=== PATIENT | male | born 1990 | race Caucasian/White ===

== ENCOUNTER 2017-12-06 17:27 | Emergency (ER) | payer OTHER ==
[2017-12-06 17:46] VITALS: RESP 20
[2017-12-06] MEDS ORDERED: Bacitracin 500 Units/gm Oint Foilpak UD TOP ONE (17:53)
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
[2017-12-06] MEDS ORDERED: Bacitracin 500 Units/gm Oint Foilpak UD ONE (18:15)
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
[2017-12-06] MEDS ORDERED: Naproxen 550 mg Tab PO STA (20:22)
[2017-12-06] MEDS ORDERED: Naproxen 550 mg Tab PO ONE (20:51)
[2017-12-06 20:54] VITALS: BP 126/78; PULSE 89; TEMP 98.5; O2SAT 98
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
== END 2017-12-06 21:11 | disposition home or self-care (01) ==
LOC: C.ER 17:27
DX: S01.511A Laceration without foreign body of lip, initial encounter (principal); S80.211A Abrasion, right knee, initial encounter; S80.212A Abrasion, left knee, initial encounter; S93.402A Sprain of unspecified ligament of left ankle, initial encounter; Y08.89XA Assault by other specified means, initial encounter; Y92.89 Other specified places as the place of occurrence of the external cause

== ENCOUNTER 2018-01-16 22:30 | Emergency (ER) | payer OTHER ==
[2018-01-16 22:48] VITALS: BP 142/79; TEMP 98.1
--- NOTE | 2018-01-16 23:22 | C.PDOC ---
History Of Present Illness 27 years old male presents to ED with complaints of productive cough with clear sputum, chest congestion, and nasal congestion that began 4 days ago. Patient reports he took mucinex with mild relief. Patient also states sore throat with hoarseness that began today. Denies fever, chills, SOB, or any other complaints. Patient states had similar symptoms few days prior. Time Seen by Provider: 01/16/18 23:07 Chief Complaint (Nursing): Cough, Cold, Congestion History Per: Patient History/Exam Limitations: no limitations Onset/Duration Of Symptoms: Days (4) Current Symptoms Are (Timing): Still Present Location Of Pain: Throat, Sinus/es Sick Contacts (Context): Family Member(s) () Associated Symptoms: Sore Throat, Cough, Sputum (clear), Nasal Congestion, Other (chest congestion). denies: Fever, Chills, Vomiting, Diarrhea Ear Symptoms: Bilateral: None Recent travel outside of the [place]: No Past Medical History Reviewed: Historical Data, Nursing Documentation, Vital Signs Vital Signs: Last Vital Signs Temp 98.1 F 01/16/18 22:40 Pulse 98 H 01/16/18 23:30 Resp 18 01/16/18 23:30 BP 142/79 01/16/18 22:40 Pulse Ox 96 01/17/18 02:02 - Medical History PMH: No Chronic Diseases Surgical History: No Surg Hx Family History: States: No Known Family Hx - Social History Hx Alcohol Use: No Hx Substance Use: No Review Of Systems Constitutional: Negative for: Fever, Chills ENT: Positive for: Nose Congestion, Other (Sore throat) Cardiovascular: Positive for: Other (chest congestion). Negative for: Palpitations Respiratory: Positive for: Cough (productive with clear spuum), Sputum (clear). Negative for: Shortness of Breath Gastrointestinal: Negative for: Nausea, Vomiting, Abdominal Pain, Diarrhea, Constipation Neurological: Negative for: Weakness, Numbness Physical Exam - Physical Exam Appears: Well, Non-toxic, No Acute Distress Skin: Normal Color, Warm, Dry Head: Atraumatic, Normacephalic Eye(s): bilateral: Normal Inspection, PERRL, EOMI Ear(s): Bilateral: Normal Nose: No Epistaxis, Other (enlarged nasal turbulence) Oral Mucosa: Moist Tongue: Normal Appearing Lips: Normal Appearing, No Swelling Throat: Normal, No Erythema, No Exudate, No Drooling Neck: Supple Chest: Symmetrical, No Tenderness Cardiovascular: Rhythm Regular Respiratory: Normal Breath Sounds, No Decreased Breath Sounds, No Rales, No Rhonchi, No Stridor, No Wheezing Gastrointestinal/Abdominal: Soft, No Tenderness, No Distention Extremity: Normal ROM, No Deformity Extremity: Bilateral: Normal Color And Temperature, Normal ROM Neurological/Psych: Oriented x3, Normal Speech (mild hoarseness), Normal Cognition Gait: Steady ED Course And Treatment O2 Sat by Pulse Oximetry: 96 (RA) Pulse Ox Interpretation: Normal Progress Note: Pt appears well in NAD, VSS afebrile. Pt speaking in full sentences and PE unremarkable. Pt is stable for d/c. Plan d/w pt who understand agreed to plan. Return precautions discussed Disposition Counseled Patient/Family Regarding: Diagnosis, Need For Followup, Rx Given - Disposition Referrals: [facility] at [facility] [Outside] Disposition: HOME/ ROUTINE Disposition Time: 23:20 Condition: STABLE Additional Instructions: Increase PO fluids Gargle with salt water Follow up with PMD Return to ER if worse Prescriptions: Benzonatate [Tessalon Perles] 100 mg PO TID #20 sgl Cetirizine HCl [Zyrtec] 10 mg PO DAILY #20 capsule Ibuprofen [Motrin] 600 mg PO Q6H #20 tab Instructions: Sore Throat, Adult (DC), Viral Upper Respiratory Infection, Adult (DC) Forms: [facility] (Estonian) - Clinical Impression Clinical Impression: Upper respiratory infection, Pharyngitis - PA / IV TECHNICIAN / Resident Statement MD/DO has reviewed & agrees with the documentation as recorded. - Scribe Statement The provider has reviewed the documentation as recorded by the Eduardoibivelisse Schmitz All medical record entries made by the Eduardoibivelisse were at my direction and personally dictated by me. I have reviewed the chart and agree that the record accurately reflects my personal performance of the history, physical exam, medical decision making, and the department course for this patient. I have also personally directed, reviewed, and agree with the discharge instructions and disposition.
[2018-01-16 23:31] VITALS: PULSE 98; RESP 18
[2018-01-17 01:57] VITALS: O2SAT 96
== END 2018-01-16 23:31 | disposition home or self-care (01) ==
LOC: C.ER 22:30
DX: J02.9 Acute pharyngitis, unspecified (principal)